=== PATIENT | female | born 1975 | race Caucasian/White ===

== ENCOUNTER 2018-04-02 06:12 | Emergency (ER) | payer BC ==
[~2018-04-02] VITALS: Ht 172.7 cm; Wt 175.8 kg
[~2018-04-02 06:12] MED LIST: FLEXERIL10 MG PO; LISINOPRIL20 MG PO; LORTAB 10 MG-3473 ML PO; NAPROSYN500 MG PO; NO MEDS
[2018-04-02] MEDS ORDERED: TRAMADOL HCL50 MG PO (08:36)
[2018-04-02 08:42] VITALS: BP 169/95
== END 2018-04-02 08:43 | disposition home or self-care (01) ==
LOC: EME 06:12
DX: M25.561 Pain in right knee (principal); M25.461 Effusion, right knee; I10 Essential (primary) hypertension
CPT/HCPCS: 73564; 99281; 99283